=== PATIENT | male | born 1980 | race Hispanic/Latino ===

== ENCOUNTER 2016-07-03 16:54 | Emergency (ER) | payer SELFPAY ==
[~2016-07-03] VITALS: Ht 167.6 cm; Wt 74.1 kg
[2016-07-03 17:50] LABS: ADD MIUA? NO; BILIRUBIN NEGATIVE; BLOOD NEGATIVE; COLOR YELLOW ((YELLOW)); GLUCOSE (STRIP) NEGATIVE; KETONES TRACE; LEUKOCYTES NEGATIVE; NITRITE NEGATIVE; PH, URINE 6.5 (5-8); PROTEIN (STRIP) 30; SPECIFIC GRAVITY 1.025 (1.000-1.030); UCUL ADDED? NO; UROBILINOGEN 0.2 MG/DL (0.2-1.0)
[2016-07-03 18:23] LABS: HEMATOCRIT 44.9 % (38.0-50.0); MCH 29.6 PG (29.0-34.0); MCHC 35.4 G/DL (30.0-36.0); MCV 83.6 FL (86-99); MEAN PLAT.VOLUME 10.8 uM^3 (9.0-12.4); PLATELET COUNT 209 K/uL (156-360); RED BLOOD COUNT 5.37 M/uL (4.00-5.50); WHITE BLOOD COUNT 12.9 K/uL (4.1-10.2)
[2016-07-03 18:32] LABS: CHLORIDE 106 mEq/L (99-109); POTASSIUM 3.9 mEq/L (3.7-5.4); SODIUM 143 mEq/L (136-147)
[2016-07-03 18:34] LABS: GLUCOSE 95 mg/dL (70-99)
[2016-07-03 18:36] LABS: ANION GAP 11 MEQ/L (2-14)
[2016-07-03 18:39] LABS: UREA NITROGEN (BUN) 8 mg/dL (9-23)
[2016-07-03 18:41] LABS: GFR ESTIMATE (CALCULATED) > 59 mL/min/
[2016-07-03] MEDS ORDERED: ZOFRAN ODT4 MG PO (19:08)
[2016-07-03 19:29] VITALS: BP 109/87
== END 2016-07-03 19:30 | disposition home or self-care (01) ==
LOC: EME 16:54
PROVIDERS: Physician Assistant
DX: R11.2 Nausea with vomiting, unspecified (principal)
CPT/HCPCS: 80048; 81003; 85027; 99281; 99285; J7030